=== PATIENT | female | born 1945 | race Caucasian/White ===

== ENCOUNTER 2019-11-04 18:29 | Outpatient (REF) | payer MEDICARE, SELFPAY ==
[2019-11-04 19:53] LABS: HCT 40.7 % (36.0-46.0); HGB 13.2 g/dL (11.2-15.7); MCH 32.5 pg (27.0-33.0); MCHC 32.4 % (32.0-36.0); MCV 100.2 fL (80-95); MPV 10.9 fL (8.0-11.0); Platelet Count 257 10^3/uL (130-400); RBC 4.06 10^6/uL (3.93-5.22); RDW 11.9 % (11.7-14.6); RDW-SD 44.6 fL; WBC 6.29 10^3/uL (4.4-10.8)
[2019-11-04 20:39] LABS: ALT 24 U/L (14-59); AST 16 U/L (15-37); Albumin 3.6 g/dL (3.4-5.0); Alkaline Phosphatase 71 U/L (46-116); Anion Gap 6.7 mmol/L (3-11); BUN 17 mg/dL (7-18); Bilirubin, Total 0.6 mg/dL (0.2-1.0); CO2 29.3 mmol/L (21.0-32.0); CREATININE 0.84 mg/dL (0.55-1.02); Chloride 103 mmol/L (98-107); Glucose 82 mg/dL (74-106); Potassium 4.1 mmol/L (3.5-5.1); Sodium 139 mmol/L (136-145); TSH 1.65 uIU/mL (0.36-3.74); Total Protein 6.5 g/dL (6.4-8.2); Vitamin B12 218 pg/mL (193-986)
== END 2019-11-04 18:49 ==
LOC: NCHCN 18:29
PROVIDERS: PCP Nurse Practitioner Family; Visit Provider Internal Medicine
DX: R53.83 Other fatigue (principal); R63.4 Abnormal weight loss; R26.81 Unsteadiness on feet; R41.3 Other amnesia
CPT/HCPCS: 80053; 85027; 82607; 84443

== ENCOUNTER 2020-08-16 16:30 | Outpatient (REF) | payer MEDICARE, SELFPAY ==
[2020-08-16 21:34] LABS: Vitamin B12 1415 pg/mL (193-986)
== END 2020-08-16 16:31 | disposition home or self-care (01) ==
LOC: NCHCN 16:30
PROVIDERS: PCP Nurse Practitioner Family; Visit Provider Internal Medicine
DX: F03.90 Unspecified dementia, unspecified severity, without behavioral disturbance, psychotic disturbance, mood disturbance, and anxiety (principal)
CPT/HCPCS: 82607

== ENCOUNTER 2022-09-04 13:44 | Outpatient (REF) | payer MEDICARE, SELFPAY ==
[2022-09-04 15:17] LABS: Abs Immature Grans 0.06 10^3/uL (0.0-0.06); Absolute Basophil Count 0.08 10^3/uL (0.0-0.2); Absolute Lymphocyte Count 0.82 10^3/uL (1.2-3.4); Absolute Neutrophil Count 7.65 10^3/uL (1.2-6.7); Basophils % 0.8; Eosinophils % 1.1; HCT 41.8 % (36.0-46.0); HGB 13.7 g/dL (11.2-15.7); Immature Grans % 0.6; Lymphocytes % 8.6; MCH 31.2 pg (27.0-33.0); MCHC 32.8 % (32.0-36.0); MCV 95 fL (80-95); MPV 10.2 fL (8.0-11.0); Monocytes % 8.4; Neutrophils % 80.5; Platelet Count 330 10^3/uL (130-400); RBC 4.39 10^6/uL (3.93-5.22); RDW 12.1 % (11.7-14.6); RDW-SD 42.6 fL; WBC 9.51 10^3/uL (4.4-10.8)
[2022-09-04 16:52] LABS: ALT 10 U/L (14-59); AST 27 U/L (15-37); Albumin 3.5 g/dL (3.4-5.0); Alkaline Phosphatase 80 U/L (46-116); Anion Gap 6.3 mmol/L (3-11); BUN 23 mg/dL (7-18); Bilirubin, Total 0.5 mg/dL (0.2-1.0); CO2 32.7 mmol/L (21.0-32.0); Calcium 9.7 mg/dL (8.5-10.1); Chloride 106 mmol/L (98-107); Estimated GFR 58.02 (mL/min/1.73m2); Glucose 76 mg/dL (74-106); Sodium 145 mmol/L (136-145); Total Protein 6.9 g/dL (6.4-8.2)
[2022-09-04 16:54] LABS: Vitamin B12 > 2000 pg/mL (193-986)
== END 2022-09-04 13:45 | disposition home or self-care (01) ==
LOC: NCHCN 13:44
PROVIDERS: PCP Nurse Practitioner Family; Visit Provider Nurse Practitioner Family
DX: G20 Parkinson's disease (principal); M79.89 Other specified soft tissue disorders
CPT/HCPCS: 80053; 82607; 85025

== ENCOUNTER 2022-12-19 16:51 | Outpatient (REF) | payer MEDICARE, SELFPAY | END 2022-12-19 16:52 | disposition home or self-care (01) | LOC: NCHCN 16:51 | PROVIDERS: PCP Nurse Practitioner Family; Visit Provider Family Medicine | DX: R41.0 Disorientation, unspecified (principal) | CPT/HCPCS: 87086 ==